=== PATIENT | female | born 1960 | race Caucasian/White ===

== ENCOUNTER 2022-03-13 22:45 | Emergency (ER) | payer MEDICARE, BC, SELFPAY ==
--- NOTE | ~2022-03-13 | XR_ITS ---
EXAMINATION: XR knee RT 3V DATE: 03/14/2022 00:44 INDICATION: Bruising, swelling and abrasions at the right knee post fall TECHNIQUE: Anteroposterior, oblique and crosstable lateral views of the right knee were obtained COMPARISON: None. FINDINGS: Alignment is normal. No fracture. Joint spaces appear relatively preserved on nonweightbearing imagin g. There are however small marginal osteophytes in all 3 compartments consistent with at least mild o steoarthritis. No right knee joint effusion/layering lipohemarthrosis. Soft tissues swelling with sub cutaneous edema anterior to the knee and proximal tibia as well as lateral to the knee. IMPRESSION: 1. Soft tissue swelling anterior and lateral to the right knee with no joint effusion or acute osseou s abnormality. 2. At least mild tricompartmental osteoarthritis of the right knee. Reviewed, dictated and finalized at location A. IMPRESSION: 1. Soft tissue swelling anterior and lateral to the right knee with no joint ef fusion or acute osseous abnormality. 2. At least mild tricompartmental osteoarthritis of the right knee.
--- NOTE | ~2022-03-13 | CT_ITS ---
EXAMINATION: CT brain wo con DATE: 03/13/2022 23:28 INDICATION: Head injury post fall TECHNIQUE: Computed tomography (CT) of the head was performed without intravenous contrast. Sagittal and coronal reconstructions were performed. The mA was adjusted according to patient size. Iterative reconstruction technique was employed. The dose-length product was 605.33 mGy-cm. COMPARISON: None FINDINGS: Very small right frontal scalp hematoma. No fracture. No acute intracranial hemorrhage, acute infarct ion or abnormal extra axial fluid collection. Ventricles are normal and symmetric. No mass/mass effec t. Mild mucosal thickening in the ethmoid sinuses. The orbits and mastoid air cells are normal. IMPRESSION: 1. Normal brain. No fracture or acute intracranial process. Reviewed, dictated and finalized at location A.
--- NOTE | ~2022-03-13 | CT_ITS ---
EXAMINATION: CT cervical spine wo con DATE: 03/13/2022 23:28 INDICATION: Head injury post fall TECHNIQUE: Computed tomography (CT) of the cervical spine was performed without intravenous contrast. Automated exposure control and iterative reconstruction technique were employed. The dose-length pro duct was 446.13 mGy-cm. COMPARISON: None FINDINGS: Slight cervicothoracic dextrocurvature. 102 mm anterolisthesis C2 on C3 and C3 on C4. 2 mm retrolisth esis C4 on C5. Anterior plate-screw fixation for anterior spinal fusion at C5-C7. Vertebral body heig hts are normal. No fracture. Moderate to severe disc height loss with degenerative endplate changes a t C4-C5. Moderate disc height loss at C2-C3. Mild disc height loss at C3-C4, C7-T1 and T2-T3. Dystrop hic calcifications at the bilateral palatine tonsils. Cervical soft tissues are otherwise unremarkabl e. Visualized airway and apices of lungs are clear. The following disc levels are specifically discus sed: C2-C3: The disc does not extend beyond the endplate margin. There is mild bilateral uncovertebral christian nt osteoarthritis. There is severe right facet joint osteoarthritis. The left facet joint is fused Th ere is no neural foraminal stenosis. There is no central canal stenosis. C3-C4: The disc does not extend beyond the endplate margin. There is mild bilateral uncovertebral christian nt osteoarthritis with early fusion. There is severe left facet joint osteoarthritis. The right facet joint is fused. There is mild bilateral neural foraminal stenosis. There is no central canal stenosi s. C4-C5: Large disc bulge. There is severe left and moderate right uncovertebral joint osteoarthritis. There is mild right and severe left facet joint osteoarthritis. There is mild right and moderate left neural foraminal stenosis. There is moderate central canal stenosis. C5-C6: Disc space is fused. There is also fusion of the left facet joint. There is moderate right fac et joint osteoarthritis. There is mild left neural foraminal stenosis. There is mild central canal st enosis. C6-C7: Disc space is fused with small amount of ossification along the posterior longitudinal ligamen t. There is fusion crosses the left facet joint. There is moderate right facet joint osteoarthritis. There is no neural foraminal stenosis. There is no central canal stenosis. C7-T1: The disc does not extend beyond the endplate margin. There is mild bilateral uncovertebral christian nt osteoarthritis. There is moderate right and severe left facet joint osteoarthritis. There is mild bilateral neural foraminal stenosis. There is no central canal stenosis. IMPRESSION: 1. C5-C7 instrumented anterior spinal fusion. 2. Moderate to severe spondylosis at C4-C5 with lesser spondylosis in the remainder of the cervical s pine. Reviewed, dictated and finalized at location A. IMPRESSION: 1. C5-C7 instrumented anterior spinal fusion. 2. Moderate to severe spondylosis at C4-C5 with lesser spondylosis in the remai nder of the cervical spine.
--- NOTE | 2022-03-13 22:50 | ECG_ITS ---
Measurements Intervals [place] Rate: 72 P: 60 [place]: 145 QRS: 23 QRSD: 94 T: 58 QT: 416 QTc: 458 Interpretive Statements SINUS RHYTHM BASELINE WANDER- I, III, AVR, AVL, AVF NORMAL ECG NO PREVIOUS ECG AVAILABLE FOR COMPARISON Electronically Signed On 03-14-2022 7:53:03 CDT by Leobardo Murcia D.O.
[2022-03-13 22:55] VITALS: BP 149/90; O2SAT 95
[2022-03-13 22:56] VITALS: BP 149/90; PULSE 77; RESP 16; TEMP 36.8; O2SAT 96
--- NOTE | 2022-03-13 23:05 | PC.NURSE ---
Report received from LAYLA Price. CT here to transport pt for films.
--- NOTE | 2022-03-13 23:57 | ED.GENADULT ---
HPI - General Adult General Chief complaint: Altered Mental Status Stated complaint: head injury with ALOC Time Seen by Provider: 03/13/22 23:36 History of Present Illness HPI narrative: this is a 61-year-old female presenting ED with altered mental status. Patient's family said that she fell @ approximately 8:00 p.m.. It was a mechanical fall over. Because it was dark outside. She struck her head but she denies loss conscious. She denies use of blood thinners. the patient's family was concerned because they believe that her speech was slurred and that she was more confused than usual. The patient herself is complaining of neck pain of which she says is chronic. She says she needs to find a pain doctor due to her chronic neck pain. There is no numbness tingling or weakness. Patient denies any other injuries. She denies use of drugs or alcohol. Related Data Allergies Allergy/AdvReac Type Severity Reaction Status Date / Time No Known Allergies Allergy Verified 03/14/22 02:25 Review of Systems Review of Systems: CONSTITUTIONAL: Denies night sweats. EYES: No eye pain ENT: Denies rhinorrhea CARDIOVASCULAR: Denies palpitations RESPIRATORY: Denies hemoptysis GASTROINTESTINAL: Denies hematemesis GENITOURINARY: Denies hematuria. SKIN: Denies rash MUSCULOSKELETAL: Denies myalgia. NEUROLOGIC: Denies weakness. PSYCHIATRIC: Denies delusions PMFSH Past Medical History Medical History (Updated 03/14/22 @ 03:16 by Alejo Villarreal MD) Anxiety Benign essential hypertension High cholesterol Intervertebral disc disorder of cervical region with myelopathy Social History Social History Smoking packs per day: 1 Smoking cigarettes per day: 20.0 Years smoked: 40 Smoking pack-years: 40.00 Tobacco type: cigarettes Second hand tobacco smoke exposure: Yes Alcohol intake: never Substance use: former Substance use type: does not use Exam Narrative: APPEARANCE: patient is lethargic during the interview. Head atraumatic. EYES: PERRLA/EOMI, pupils are 2 mm and reactive NOSE: Normal no drainage NECK: Supple, Trachea midline, no midline tenderness RESPIRATORY: CTAB, No increased work of breathing. CARDIOVASCULAR: S1S2 appreciated ABDOMINAL: Soft, nontender, nondistended, MUSCULOSKELETAl: No obvious deformities NEURO: Alert. Cranial nerves 2-12 grossly intact. Sensation light touch, motor function cerebellar function intact for 4 extremities. Gait exam was deferred SKIN:: Warm, dry. Normal color PSYCHIATRIC: Normal affect Course Vital Signs Vital signs: Vital Signs Blood Pressure 149/90 H 03/13/22 22:55 Pulse Oximetry 95 03/13/22 22:55 Temperature 98.2 F 03/13/22 22:56 Pulse Rate 74 03/14/22 01:31 Respiratory Rate 13 03/14/22 00:01 Blood Pressure 161/90 H 03/14/22 01:31 Pulse Oximetry 92 03/14/22 01:31 Oxygen Delivery Room Air 03/13/22 22:56 Medical Decision Making MDM Narrative Medical decision making narrative: this is a 61-year-old female presenting to the ED after a fall. Additionally the patient has slurred speech and is lethargic with constricted pupils. Her presentation is consistent with opiate or alcohol use. Patient herself denies this and her family denies any history substance use disorder. We will obtain a urine drug screen. Additionally will get a CT of the head and C-spine as well as lab work to evaluate for other causes of altered mental status. CT head and C-spine was negative for acute injury. Lab work was within acceptable levels. The patient regained consciousness and started requesting pain meds for her head and neck. She was offered Tylenol refused and said that she needed Tylenol 3. The patient's urine drug screen was positive for both benzos and opiates. When the patient was asked about this she admitted to taking multiple doses of both of those today. At this time she is
[2022-03-14] VITALS (12 sets, daily range): BP systolic 146–161; BP diastolic 72–94; PULSE 69–78; RESP 13; O2SAT 92–99
--- NOTE | 2022-03-14 00:01 | PC.NURSE ---
After EDP exam, pt getting up to bedside commode for urine collection. Pt removed own c-collar. Dr. Villarreal made aware, states no need to replace at this time.
--- NOTE | 2022-03-14 00:39 | PC.NURSE ---
Pt had defecated and contaminated urine with stool while on commode. Made aware of need for UA and plan to straight cath if unable to obtain within 1 hr.
[2022-03-14 00:42] LABS: Basophils Percent Auto 0.3 % (0.2-1.2); Eosinophils Percent Auto 0.1 % (0-4.4); Hematocrit 41.9 % (37.0-47.0); Hemoglobin 14.3 g/dL (12.0-15.0); Immature Granulocyte Absolute 0.03 K/mm3 (0.00-0.031); Immature Granulocyte Percent A 0.3 % (0-0.5); Lymphocytes Absolute Auto 1.35 K/mm3 (0.9-3.2); Lymphocytes Percent Auto 11.4 % (18.3-44.2); Mean Corpuscular HGB Conc 34.1 g/dl (32-36); Mean Corpuscular Volume 99.5 fl (80-100); Mean Platelet Volume 10.2 fl (7.4-10.4); Monocytes Absolute Auto 0.5 K/mm3 (0.1-0.6); Monocytes Percent Auto 4.5 % (2.6-8.5); Neutrophils Absolute Auto 9.9 K/mm3 (1.3-6.7); Neutrophils Percent Auto 83.4 % (45.5-73.1); Platelet Count Result 292 k/mm3 (150-375); Red Blood Count 4.21 M/mm3 (4.2-5.4); Red Cell Distribution Width 13.2 % (11.5-14.5); White Blood Count 11.9 K/mm3 (4.5-10.0)
[2022-03-14 00:54] LABS: Prothrombin Time 12.7 Seconds (11.1-14.7)
[2022-03-14 00:58] LABS: Alanine Aminotransferase 50 U/L (6-35); Albumin Level 4.7 g/dL (3.5-5.1); Alkaline Phosphatase 98 U/L (38-126); Anion Gap 13 mmol/L (8-16); Aspartate Amino Transferase 22 U/L (14-36); Bilirubin,Total 0.5 mg/dL (0.2-1.3); Blood Urea Nitrogen 12 mg/dL (7-17); Calcium 9.4 mg/dL (8.4-10.2); Carbon Dioxide 27 mmol/L (22-30); Chloride 104 mmol/L (98-107); Estimated Glomerular Filt Rate > 60; Glucose 121 mg/dL (65-110); Potassium 3.5 mmol/L (3.4-5.0); Sodium 144 mmol/L (137-145)
[2022-03-14 00:59] LABS: Ethanol < 10 mg/dL (<10)
[2022-03-14 02:05] LABS: Add Urine Microscopic? NO; Appearance Urine Clear (Clear); Bilirubin Urine Negative (Negative); Blood Urine Negative (Negative); Color Urine Yellow (Yellow); Glucose Urine UA Negative (Negative); Ketones Urine Negative (Negative); Leukocyte Esterase Ur Negative LEU/UL (Negative); Mucus Urine Rare /lpf; Nitrate Urine Negative (Negative); Protein Urine Negative (Negative); RBC Urine 0-2 /hpf (0-2); Urobilinogen Urine 0.2 mg/dL (<2.0); WBC Urine 0-3 /hpf; pH Urine 5.5 (5.0-9.0)
--- NOTE | 2022-03-14 02:24 | PC.NURSE ---
Pt c/o pain to head and neck I can't get comfortable . Dr. Villarreal made aware.
--- NOTE | 2022-03-14 02:36 | PC.NURSE ---
In to give pt tylenol po, pt refuses, states only if it's tylenol #3 . Explained that because of pt's hx of confusion cannot give anything stronger at this time. Dr. Villarreal made aware.
--- NOTE | 2022-03-14 02:37 | PC.NURSE ---
called lab at 02:15 and 02:38 to add ua drug screen.
[2022-03-14 02:57] LABS: Amphetamine Screen Urine Negative (Negative); Barbiturate Screen Urine Negative (Negative); Benzodiazepines Screen Urine Positive (Negative); Cannabinoid Screen Urine Negative (Negative); Cocaine Screen Urine Negative (Negative); Methadone Screen Urine Negative (Negative); Opiate Screen Urine Positive (Negative); Phencyclidine Screen Urine Negative (Negative)
--- NOTE | 2022-03-14 03:03 | PC.NURSE ---
Pt calls crime lab technician into room to state that she is ready to leave. Pt tells tech that tylenol aint going to do a damn thing. My neck is fused together . Dr. Villarreal at bedside speaking with patient.
--- NOTE | 2022-03-14 03:21 | PC.NURSE ---
Pt's IV dc'd and pt requests to ambulate to the bathroom. Gait steady. Pt states is feeling better. Note speech is less slurred than on arrival and pt seems more awake and alert.
== END 2022-03-14 03:28 | disposition home or self-care (01) ==
PROVIDERS: Emergency Provider Emergency Medicine; PCP Internal Medicine
DX: S09.90XA Unspecified injury of head, initial encounter (principal); F11.90 Opioid use, unspecified, uncomplicated; F13.90 Sedative, hypnotic, or anxiolytic use, unspecified, uncomplicated; I10 Essential (primary) hypertension; E78.00 Pure hypercholesterolemia, unspecified; F41.9 Anxiety disorder, unspecified; F17.210 Nicotine dependence, cigarettes, uncomplicated; M17.11 Unilateral primary osteoarthritis, right knee; M47.812 Spondylosis without myelopathy or radiculopathy, cervical region; Z98.1 Arthrodesis status; W19.XXXA Unspecified fall, initial encounter
CPT/HCPCS: 36415; 51701; 70450; 72125; 73562; 80053; 80307; 81003; 85025; 85610; 85730; 93005; 99284

== ENCOUNTER 2022-07-03 10:47 | Outpatient (CLI) | payer MEDICARE, BC, SELFPAY ==
--- NOTE | ~2022-07-03 | XR_ITS ---
EXAM: XR_[id number]_CR DATE: 07/03/2022 11:17 HISTORY: POSTERIOR neck pain. H/O C spine surg IN THE 90S . COMPARISON: CT C-spine 03/13/2022. FINDINGS: Uncomplicated appearing anterior fusion hardware spanning C5-C7 with incorporated bone plug s. Craniocervical association and atlantoaxial joint are aligned, and demonstrate mild degenerative c hange. No prevertebral soft tissue swelling. 3 mm anterolisthesis at C2-3 and C3-4. 2 mm retrolisthes is at C4-5. Mild disc space narrowing at C3-4. Severe disc space narrowing at C4-5. Multilevel facet hypertrophy and sclerosis. Facet fusion at C2-3 and C3-4. IMPRESSION: Uncomplicated appearing C5-C7 ACDF. Multilevel grade 1 listheses in the upper C-spine. Se tracee degenerative disc disease at C4-5. Upper cervical spine facet fusion. Multilevel facet arthropat hy. Reviewed, dictated and finalized at location K. N PROCESSOR IMPRESSION: Uncomplicated appearing C5-C7 ACDF. Multilevel grade 1 listheses in the upper C-spine. Severe degenerative disc disease at C4-5. Upper cervical sp ine facet fusion. Multilevel facet arthropathy.
== END 2022-07-03 10:48 | disposition home or self-care (01) ==
PROVIDERS: PCP Internal Medicine; Visit Provider Internal Medicine
DX: M50.321 Other cervical disc degeneration at C4-C5 level (principal)
CPT/HCPCS: 72040

== ENCOUNTER 2022-10-27 14:23 | Outpatient (CLI) | payer MEDICARE, BC, SELFPAY ==
--- NOTE | ~2022-10-27 | CT_ITS ---
EXAMINATION: CT cervical spine wo con DATE: 10/27/2022 14:47 INDICATION: Cervical degenerative disc disease. TECHNIQUE: Computed tomography (CT) of the cervical spine was performed without intravenous contrast. Automated exposure control and iterative reconstruction technique were employed. The dose-length pro duct was 293.76 mGy-cm. COMPARISON: CT cervical spine 03/13/2022 FINDINGS: There is 2 mm anterolisthesis of C3 on C4, 2 mm retrolisthesis of C4 on C5, and 2 mm chata listhesis of C7 on T1. There are changes of anterior fusion procedure from C5 to C7 with healed inter body bone graft and anterior plate and screws. There is mildly decreased disc height at C2-C3 and C3- C4 and severely decreased disc height at C4-C5 with endplate remodeling. There is mild degenerative h eight loss of C4 vertebral body. The following disc levels are specifically discussed: C2-C3: There is no uncovertebral joint osteoarthritis. There is severe bilateral facet joint osteoart hritis. There is ankylosis of left facet joint with moderate hypertrophy. There is mild bilateral irving ral foraminal stenosis. There is no central canal stenosis. C3-C4: There is mild bilateral uncovertebral joint hypertrophy. There is severe left facet joint oste oarthritis. There is ankylosis of right facet joint with moderate hypertrophy. There is mild bilatera l neural foraminal stenosis. There is mild central canal stenosis. C4-C5: There is severe bilateral uncovertebral joint osteoarthritis. There is mild right and severe l eft facet joint osteoarthritis. There is mild bilateral neural foraminal stenosis. There is mild cent ral canal stenosis. C5-C6: There is mild bilateral uncovertebral joint hypertrophy. There is no facet joint hypertrophy. There is no neural foraminal stenosis. There is no central canal stenosis. C6-C7: There is mild bilateral uncovertebral joint hypertrophy. There is mild left facet joint hypert rophy. There is mild left neural foraminal stenosis. There is mild central canal stenosis. C7-T1: There is no uncovertebral joint osteoarthritis. There is severe bilateral facet joint osteoart hritis. There is mild bilateral neural foraminal stenosis. There is no central canal stenosis. IMPRESSION: 1. Stable severe cervical spondylosis, worst at C4-C5. 2. Anterior fusion procedure from C5 to C7. Facet joint ankylosis at C2-C3 and C3-C4. Reviewed, dictated and finalized at location E.
== END 2022-10-27 14:24 | disposition home or self-care (01) ==
PROVIDERS: PCP Family Medicine; Visit Provider Family Medicine
DX: M50.30 Other cervical disc degeneration, unspecified cervical region (principal); Z98.1 Arthrodesis status; M47.892 Other spondylosis, cervical region
CPT/HCPCS: 72125